=== PATIENT | female | born 1955 ===

== ENCOUNTER 2021-03-25 10:07 | Outpatient (CLI) | payer OTHER | END 2021-03-25 10:09 | disposition home or self-care (01) | LOC: SONOGRAMA 10:07 | PROVIDERS: ATTEND Obstetrics & Gynecology Gynecology | DX: N84.0 Polyp of corpus uteri (principal); N60.11 Diffuse cystic mastopathy of right breast; N60.12 Diffuse cystic mastopathy of left breast; E66.8 Other obesity; Z80.3 Family history of malignant neoplasm of breast; E55.9 Vitamin D deficiency, unspecified ==